=== PATIENT | female | born 1955 | race Caucasian/White ===

== ENCOUNTER 2023-05-29 13:00 | Outpatient (RCR) | payer OTHER, SELFPAY | END 2023-05-29 23:59 | disposition home or self-care (01) | LOC: RPT 13:00 | PROVIDERS: ATTENDING PHYSICIAN Internal Medicine Gastroenterology; PRIMARYCARE PHYSICIAN Family Medicine | DX: R15.1 Fecal smearing (principal); R15.9 Full incontinence of feces; M62.89 Other specified disorders of muscle; Z73.6 Limitation of activities due to disability; R27.8 Other lack of coordination; M62.81 Muscle weakness (generalized) | CPT/HCPCS: 97014; 97112; 97530 ==

== ENCOUNTER 2023-07-17 14:10 | Outpatient (RCR) | payer OTHER, SELFPAY | END 2023-07-17 23:59 | disposition home or self-care (01) | LOC: RPT 14:10 | PROVIDERS: ATTENDING PHYSICIAN Physical Medicine & Rehabilitation; FAMILY PHYSICIAN Family Medicine | DX: M47.812 Spondylosis without myelopathy or radiculopathy, cervical region (principal); R51.9 Headache, unspecified; G89.29 Other chronic pain; M54.2 Cervicalgia; Z73.6 Limitation of activities due to disability | CPT/HCPCS: 97110; 97140; 97162 ==

== ENCOUNTER 2023-07-31 14:02 | Outpatient (RCR) | payer OTHER, SELFPAY | END 2023-07-31 23:59 | disposition home or self-care (01) | LOC: RPT 14:02 | PROVIDERS: ATTENDING PHYSICIAN Physical Medicine & Rehabilitation; FAMILY PHYSICIAN Family Medicine | DX: M47.812 Spondylosis without myelopathy or radiculopathy, cervical region (principal); R51.9 Headache, unspecified; M54.2 Cervicalgia; G89.29 Other chronic pain; Z73.6 Limitation of activities due to disability | CPT/HCPCS: 97110 ==

== ENCOUNTER → 2023-08-17 10:32 | Outpatient (REF) | payer OTHER, SELFPAY | LOC: EMG 10:32 | PROVIDERS: ATTENDING PHYSICIAN Psychiatry & Neurology Neuromuscular Medicine; FAMILY PHYSICIAN Family Medicine | DX: R20.0 Anesthesia of skin (principal) | CPT/HCPCS: 95886; 95910 ==

== ENCOUNTER → 2023-10-03 13:47 | Outpatient (REF) | payer OTHER, SELFPAY | LOC: WDC 13:47 | PROVIDERS: ATTENDING PHYSICIAN Family Medicine | DX: Z12.31 Encounter for screening mammogram for malignant neoplasm of breast (principal) | CPT/HCPCS: 77063; 77067 ==

== ENCOUNTER 2023-12-29 15:02 | Observation (INO) | payer OTHER, SELFPAY ==
[2023-12-29] VITALS (9 sets, daily range): BP systolic 118–139; BP diastolic 74–85; BMI 27.5
[2023-12-29 12:09] LABS: Glucose - Point of Care 141 mg/dl (70-99)
--- NOTE | 2023-12-29 12:29 | ED.CVA ---
History of Present Illness
General
Chief Complaint: CVA/TIA Symptoms
Time Seen by Provider: 12/29/23 12:15
Onset of Stroke Symptoms
Onset of symptoms known: Yes
Date of onset of symptoms: 12/29/23
Time of onset of symptoms: 08:00
History of Present Illness
History of Present Illness:
68-year-old female arrives to the emergency department as a triage stroke alert due to symptoms of aphasia, slurred speech, and difficulty walking. Patient states to me that she has had intermittent dizziness and vision changes for the past 2 weeks
or more, initially describes the vision changes as diplopia however after further discussion it appears to be more of a peripheral visual haziness. She does note chronic neck pain and some extremity paresthesias as well. She felt as though she
could not get her silverware to her mouth during breakfast this morning. The initial onset of the more severe symptoms was at 8 AM today but seems to be improved as of this time. She does relay some mild persistent shortness of breath.
Past History
Past History
ED Past Medical History: Other (Chronic migraine headaches, iron deficiency anemia, colitis, constipation, osteopenia)
ED Past Surgical History: Brain, Cholecystectomy and
Social History
Tobacco: Non-smoker
Personal:
Living: with family
Employment: Employed
Family History
Family History: Other (Noncontributory)
Review of Systems
Review of Systems
Allergies reviewed?: Yes
All Other Systems: ROS reviewed and negative except as documented in HPI and ROS
Phy Exam
Physical Exam
Physical Exam:
GEN: Well appearing, NAD, WDWN
HEENT: Oral mucosa moist, no scleral icterus, no nasal congestion
Cardiac: Regular rate and rhythm, no murmurs
Lung: No respiratory distress, no tachypnea
MSK: No gross deformity or injuries
Skin: Good color, no pallor or jaundice, no rashes
Neuro: AO x3; CN II-XII grossly intact. BUE strength 5/5 in all mckeon, subjective sensory deficit in the left upper extremity however intact to pinprick. BLE strength 5/5 in all mckeon, sensation intact and symmetric. Normal [id number] and
[id number]
Psych: Calm, cooperative
Course
Orders/Labs/Results
Orders:
Orders
12/29/23 12:15
CT Head W/o Cont STROKE ALERT Urgent
Comment:
Reason For Exam: ataxia, speech difficulty
12/29/23 12:24
Basic Metabolic Panel Urgent
Complete Blood Count/With Diff Urgent
TSH Urgent
Comment: TSH ADDED ON BY FLOOR 4:45PM 12-29-23
12/29/23 12:30
Electrocardiogram (*1) Urgent
Reason for Study: TIA/Stroke
EKG- Treatment ONCE
12/29/23 14:41
Admit/Transfer Patient As Directed
Co-Sign Provider:
Level of Care: Observation services
Assign to:: Telemetry
Physician / Group: [facility]
Diagnosis: TIA
Reason for Telemetry: CVA/TIA
Date to Stop Telemetry: 01/01/24
Time to Stop Telemetry: 11:00
12/29/23 14:42
Code Status As Directed
Resuscitation Status: Full Code
12/29/23 14:50
Aspirin 325 mg PO NOW STA
12/29/23 Dinner
Cholesterol Lowering
At Your Request: Full Participation
12/29/23 16:44
Phosphate Enema [Fleet Phosphate Enema-Adult] 135 ml RECTAL DAILYPRN PRN
12/29/23 16:44
Add On- LAB Routine
Tests Added?: TSH
NEUROLOGY CONSULT Routine
Consulting Provider: Suresh Saucedo
Was physician already notified: Yes
MR Brain Without Contrast Routine
Comment:
Reason For Exam: dysarthria
Recent pill cam endoscopy?: No
Activity As Directed
Activity Level: Ambulate
Ot Eval And Treat Routine
Pt Eval And Treat Routine
Activity Level: Ambulate
DX Deep Vein Thrombosis Video Routine
12/29/23 18:00
Enoxaparin Sodium [Lovenox] 40 mg SC QPM
12/29/23 20:00
mesalamine See Dose Instructions PO BID
12/29/23 22:00
Amitriptyline [Elavil] 75 mg PO HS
Latanoprost [Xalatan Ophthalmic Solution] See Dose Instructions BOTH EYES HS
12/30/23 06:00
Basic Metabolic Panel IN AM
12/30/23 08:00
Aspirin Low Dose EC [Aspir Low (Enteric Coated)] 81 mg PO DAILY
Calcium Carbonate [Oscal Jeff 500] 500 mg PO DAILY
Cholecalciferol (Vitamin D3) [VITAMIN D3 (cholecalciferol)] 25 mcg PO DAILY
Cyanocobalamin [Vitamin B-12] 1,000 mcg PO DAILY
Venlafaxine Extended Release [Effexor Xr] 150 mg PO DAILY
01/01/24 11:00
DC Protocol for Telemetry ONCE
Abnormal Lab Results
12/29/23 12/29/23
12:07 12:24
RBC 4.18 L 10^6/uL
(4.20-5.40)
MCH 31.1 H pg
(27.0-31.0)
Absolute Lymphs (auto) 1.1 L 10^3/uL
(1.2-3.4)
Lymphocytes % 19.0 L %
(20.5-51.1)
Monocytes % 9.7 H %
(1.7-9.3)
Sodium 134 L mmol/L
(135-145)
BUN 18 H mg/dl
(7-17)
POC Glucose 141 H mg/dl
(70-99)
12/29/23 12:24
12/29/23 12:24
Vital Signs
Initial and Last Documented VS:
Initial Vital Signs
Temp Pulse Resp BP Pulse Ox
97.9 F 105 18 132/82 98
12/29/23 12:06 12/29/23 12:06 12/29/23 12:06 12/29/23 12:06 12/29/23 12:06
Last Documented Vital Signs
Temp Pulse Resp BP Pulse Ox
98.3 F 100 20 126/85 96
12/29/23 16:47 12/29/23 16:47 12/29/23 16:47 12/29/23 16:47 12/29/23 16:47
MDM/Problems Addressed
MDM/Problems Addressed:
Patient's examination is not consistent with significant/disabling CVA. Additionally symptom onset is quite vague and there seems to be a waxing and waning nature over the past several weeks and as a result she is not a thrombolytic candidate.
Case was reviewed with neurology who assessed the patient at the bedside. Will admit for TIA workup/brain MRI
*Critical Care Note
Total Time (30-74mins, 75-104mins- exclusive of procedures): Not Applicable
ED Attending Note
-
Portions of this chart may have been created with voice recognition software.� Occasional wrong word or��sound alike� substitutions may have occurred due to the inherent limitations of voice recognition software.
Discharge Plan
Departure
Patient Disposition: Admit
Date of Disposition: 12/29/23
Time of Disposition: 13:24
Admit to: Med/Surg
Presentation/result/management discussed w/ accepting MD/DO: Hospitalist
Discharge Problem:
TIA (transient ischemic attack)
Interventions
Interventions:
*Risk Screen - Suicide Last Done: 12/29/23 12:06
*General Assessment Last Done: 12/29/23 12:06
*Neglect/Abuse Screening Last Done: 12/29/23 12:06
ED- Fall Risk Assessment Last Done: 12/29/23 16:36
*ED COVID-19 Vaccine History Last Done: 12/29/23 16:36
*Nursing Disposition Last Done: 12/29/23 16:36
ED- Pulmonary Assessment Last Done: 12/29/23 12:38
ED- Neurological Assessment Last Done: 12/29/23 12:38
ED- Cardiac Assessment Last Done: 12/29/23 12:38
ED Swallowing Screen Last Done: 12/29/23 12:38
[2023-12-29 12:44] LABS: % Basophils 0.2 % (0-2); % Eosinophils 0.9 % (0-6); % Immature Granulocytes 0.3 % (0-0.5); % Monocytes 9.7 % (1.7-9.3); % Neutrophils 69.9 % (42.2-75.2); Absolute Eosinophils 0.1 10^3/uL (0-0.7); Absolute Lymphocytes 1.1 10^3/uL (1.2-3.4); Absolute Monocytes 0.6 10^3/uL (0.1-0.6); Absolute Neutrophils 4.1 10^3/uL (1.4-6.5); Hematocrit 37.3 % (37.0-47.0); Mean Corp Hgb Conc. 34.9 g/dL (33.0-37.0); Mean Corpuscular Hgb 31.1 pg (27.0-31.0); Mean Corpuscular Volume 89.2 fL (81.0-99.0); Mean Platelet Volume 9.1 fL (7.4-10.4); Nucleated Red Blood Cells % 0 %; Platelet Count 240 10^3/uL (130-400); Red Blood Cell Count 4.18 10^6/uL (4.20-5.40); Red Cell Dist. Width 12.8 % (11.5-14.5); White Blood Cell Count 5.8 10^3/uL (4.8-10.8)
[2023-12-29 13:00] LABS: Blood Urea Nitrogen 18 mg/dl (7-17); Calcium 9.4 mg/dl (8.4-10.2); Carbon Dioxide 27 mmol/L (22-30); Chloride 101 mmol/L (98-107); Estimated Creatinine Clearance 87 ml/min; Glucose 96 mg/dl (70-99); Potassium 4.1 mmol/L (3.5-5.1); Sodium 134 mmol/L (135-145); eGFR > 60.00
--- NOTE | 2023-12-29 14:45 | HPS.HSE ---
Family Physician
-
Family Physician: Shreya Barba MD
Chief Complaint
-
Dysarthria, lightheadedness, gait imbalance
History of Present Illness
68-year-old female with myriad complaints including dysarthria, lightheadedness, gait difficulty, diplopia. Symptoms have been intermittent over the past 2 weeks.
She is a difficult historian. Denies any falls recently.
Gets almost daily migraine headaches.
Medical History
Past Medical History
Past Medical History: Reports Other
Additional Past Medical History:
Ulcerative colitis
Migraine headaches
Hypothyroidism
Osteopenia
Pelvic floor dysfunction
Glaucoma
GERD
Past Surgical History: Reports Cholecystectomy and Gynocological
Additional Past Surgical History:
Brain
Social History
Tobacco: Non-smoker
Alcohol: None
Drug: None
Personal:
Living: With Family
Family History
Family History: Not pertinent
Allergies / Home Medications
Allergies reflects when Allergies were last updated in [facility].
Home Medications with original date entered in [facility]
Allergy/Medication List:
Allergies
Allergy/AdvReac Type Severity Reaction Status Date / Time
secukinumab [From Cosentyx] Allergy Unknown Verified 05/18/23 03:55
Home Medications
omeprazole 20 mg capsule,delayed release 20 mg PO DAILY Gastrointestinal issue 11/16/21
amitriptyline 50 mg tablet 75 mg PO HS Mental Health 05/18/23
thyroid (pork) 90 mg tablet ([place] Thyroid) 90 mg PO DAILY Thyroid 05/18/23
upadacitinib 15 mg tablet,extended release 24 hr (Rinvoq) 15 mg PO DAILY Autoimmune Disorder 05/18/23
venlafaxine 150 mg capsule,extended release 24 hr 150 mg PO DAILY Mental Health 05/18/23
atogepant 60 mg tablet (Qulipta) 60 mg PO DAILY 12/29/23
bimatoprost 0.01 % eye drops (Lumigan) 1 drp BOTH EYES QPM 12/29/23
calcium carbonate 500 mg PO DAILY 12/29/23
cholecalciferol (vitamin D3) 25 mcg (1,000 unit) tablet (Vitamin D3) 25 mcg PO DAILY 12/29/23
cyanocobalamin (vitamin B-12) 1,000 mcg tablet 1,000 mcg PO DAILY 12/29/23
ferrous sulfate 325 mg (65 mg iron) tablet 325 mg PO TUTH@1800 12/29/23
flaxseed oil 1,000 mg capsule 1,000 mg PO DAILY 12/29/23
magnesium oxide 400 mg PO DAILY 12/29/23
mesalamine 1.2 gram tablet,delayed release 2.4 g PO BID 12/29/23
sodium phosphates 19 gram-7 gram/118 mL enema (Fleet Enema) 118 ml [place] DAILYPRN PRN constipation 12/29/23
sumatriptan succinate 6 mg/0.5 mL subcutaneous pen injector 6 mg SC DAILYPRN PRN migraines 12/29/23
Review of Systems
-
History Source: Patient
A 12 point ROS was completed and negative except as noted: Yes
Physical Exam
Vital Signs
Vital Signs
Temp Pulse Resp BP Pulse Ox
97.9 F 106 19 135/79 97
12/29/23 12:06 12/29/23 14:30 12/29/23 14:30 12/29/23 14:00 12/29/23 14:00
Physical Exam
General: Well Developed, Well Nourished, No Apparent Distress and Comfortable
HEENT: NormoCephalic, Anicteric and Moist mucous membranes
Respiratory: Clear
Cardiac: S1/S2 and Regular Rhythm
Breast: Deferred by me
GI: Soft, Non Tender and Non Distended
Musculoskeletal: No Clubbing, No Cyanosis and No Edema
Skin: Warm and Dry
Neuro: AO x 3 and Other (4+ out of 5 right hip flexor strength)
Hematologic/Lymphatic: No Lymphadenopathy
Psych: Calm
Laboratory Results
-
12/29/23 12:24
12/29/23 12:24
Impression/Plan
-
Dysarthria/lightheadedness/gait imbalance -intermittent symptoms for 2 weeks. Admit to telemetry. CT head negative for acute disease but does show mild atrophy. Check brain MRI. Consult neurology. Consult PT/OT.
Start aspirin.
Hyponatremia -sodium 134. Monitor for now.
Ulcerative colitis -controlled on meds.
Migraine headaches
Pelvic floor dysfunction
Hypothyroidism -unclear why she is on [place] thyroid instead of levothyroxine. Patient does not know either. Check TSH.
GERD
Glaucoma
Full code
[2023-12-29] MEDS: LOVENOX 40 MG SC (17:20)
[2023-12-29 18:07] LABS: TSH 0.85 uIU/ml (0.47-4.68)
[2023-12-29] MEDS: ASPIRIN 325 MG PO (19:03)
[2023-12-29] MEDS: ELAVIL 75 MG PO (22:03)
[2023-12-29] MEDS: XALATAN OPHTHALMIC SOLUTION 1 DROP BOTH EYES (22:04)
[2023-12-30 03:37] VITALS: BP 122/71
[2023-12-30 07:00] VITALS: BP 141/76
[2023-12-30 07:01] LABS: Blood Urea Nitrogen 18 mg/dl (7-17); Calcium 9.1 mg/dl (8.4-10.2); Carbon Dioxide 30 mmol/L (22-30); Chloride 104 mmol/L (98-107); Estimated Creatinine Clearance 87 ml/min; Glucose 90 mg/dl (70-99); Potassium 4.5 mmol/L (3.5-5.1); Sodium 138 mmol/L (135-145); eGFR > 60.00
[2023-12-30] MEDS: VITAMIN D3 (cholecalciferol) 25 MCG PO (08:55)
[2023-12-30] MEDS: OSCAL CAL 500 500 MG PO (08:55)
[2023-12-30] MEDS: VITAMIN B-12 1000 MCG PO (08:56)
[2023-12-30] MEDS: ASPIR LOW (ENTERIC COATED) 81 MG PO (08:56)
[2023-12-30] MEDS: EFFEXOR XR 150 MG PO (08:56)
--- NOTE | 2023-12-30 09:36 | PTCARENOTE ---
Assumed care of patient at AM change of shift. Pt is AAOx3, ambulatory, and has no complaints at this time. NIHSS scare 1 for drift in the RLE. Plan of care ongoing.
--- NOTE | 2023-12-30 10:53 | W.PN.HOSP.TC ---
Addendum entered and electronically signed by Jimmie Terry DO 12/30/23 17:30:
Orthostatic vitals negative.
Brain MRI negative for acute stroke.
Discharge diagnosis is suspected complicated migraine, discussed with neurology.
Medically stable for discharge today. Outpatient follow-up.
Original Note:
Today's Communication/Plan
-
Await brain MRI
Neurology consult
PT
Orthostatics
Assessment / Plan
Assessment / Plan
Gen-AAOx3, NAD
HEENT-NC, AT, anicteric, clear oral mm
Neck-supple
CV-reg, no M, +S1/S2
Lungs-clear B/L
Abd-soft, NT, ND
Ext-no edema
Musculoskeletal-no cyanosis, clubbing
Skin-warm and dry
Neuro-grossly non-focal
Psych-calm, cooperative
Dysarthria/lightheadedness/gait imbalance -intermittent symptoms for [address] head negative for acute disease but does show mild atrophy. Check brain MRI. Consult neurology. Consult PT/OT.
Started aspirin. Check orthostatic vitals, discussed with nursing.
Hyponatremia -sodium improved.
Ulcerative colitis -controlled on meds.
Migraine headaches
Pelvic floor dysfunction
Hypothyroidism -unclear why she is on [place] thyroid instead of levothyroxine. Patient does not know either. TSH normal.
GERD
Glaucoma
Full code
Anticipated Discharge: Today
Subjective/Interval History
-
Date of Service: December 30, 2023
Patient seen and examined. Complaining of mild lightheadedness.
Objective Data
-
Labs:
Laboratory Results
12/30/23
06:14
Sodium 138
Potassium 4.5
Chloride 104
Carbon Dioxide 30
BUN 18 H
Creatinine 0.6
Glucose 90
Calcium 9.1
Vital Signs:
Vital Signs
Temp Pulse Resp BP Pulse Ox
97.7 F 93 18 141/76 98
12/30/23 07:00 12/30/23 07:00 12/30/23 07:00 12/30/23 07:00 12/30/23 08:00
I&O
12/29/23 12/30/23 12/31/23
06:59 06:59 06:59
Intake Total 240 / 240
Balance 240 / 240
Review of Systems
-
History Source: Patient
All other systems: Reviewed and negative
[2023-12-30 11:00] VITALS: BP 103/69; BP 112/75; BP 112/77; PULSE 106; PULSE 113; PULSE 98
[2023-12-30 12:54] VITALS: BP 105/74; PULSE 77; O2SAT 93
[2023-12-30 12:59] VITALS: BP 105/74; PULSE 91; O2SAT 99
--- NOTE | 2023-12-30 13:40 | W.DS.TRANS ---
DC Summary - [employer]
-
Discharge Instructions:
Discharge Diagnosis/Procedures Complicated migraine, hyponatremia
Diet Low Fat,Low Cholesterol
Activity As tolerated
Driving Restrictions As prior to admission
Bathing Restrictions None
Instructions:
Stand-Alone Forms:
Changes to Home Medications: No
Discharge Medications:
DC Medications w/original date entered in [facility]
omeprazole 20 mg capsule,delayed release 20 mg PO DAILY Gastrointestinal issue 11/16/21
amitriptyline 50 mg tablet 75 mg PO HS Mental Health 05/18/23
thyroid (pork) 90 mg tablet ([place] Thyroid) 90 mg PO DAILY Thyroid 05/18/23
upadacitinib 15 mg tablet,extended release 24 hr (Rinvoq) 15 mg PO DAILY Autoimmune Disorder 05/18/23
venlafaxine 150 mg capsule,extended release 24 hr 150 mg PO DAILY Mental Health 05/18/23
atogepant 60 mg tablet (Qulipta) 60 mg PO DAILY migraine 12/29/23
bimatoprost 0.01 % eye drops (Lumigan) 1 drp BOTH EYES QPM Eye Condition 12/29/23
calcium carbonate 500 mg PO DAILY Supplement 12/29/23
cholecalciferol (vitamin D3) 25 mcg (1,000 unit) tablet (Vitamin D3) 25 mcg PO DAILY Supplement 12/29/23
cyanocobalamin (vitamin B-12) 1,000 mcg tablet 1,000 mcg PO DAILY Supplement 12/29/23
ferrous sulfate 325 mg (65 mg iron) tablet 325 mg PO TUTH@1800 Supplement 12/29/23
flaxseed oil 1,000 mg capsule 1,000 mg PO DAILY Supplement 12/29/23
magnesium oxide 400 mg PO DAILY Supplement 12/29/23
mesalamine 1.2 gram tablet,delayed release 2.4 g PO BID Gastrointestinal Issue 12/29/23
sodium phosphates 19 gram-7 gram/118 mL enema (Fleet Enema) 118 ml [place] DAILYPRN PRN constipation 12/29/23
sumatriptan succinate 6 mg/0.5 mL subcutaneous pen injector 6 mg [place] DAILYPRN PRN migraines 12/29/23
Home Medication Changes
Pending Results: No
--- NOTE | 2023-12-30 14:16 | CM ---
Patient seen bedside.
IA completed.
patient lives with spouse in a 2 story home.
Patient independent prior to admission without assistive devices.
Patient drives.
No hx VN or SNF.
Patient denies home care needs.
[facility] form completed.
PCP: Dr Barba
Pharmacy: [facility] [address]
Plan: home no needs.
[2023-12-30 15:00] VITALS: BP 135/84
[2024-01-01 19:48] LABS: Hepatitis C Antibody Negative (Negative)
== END 2023-12-30 15:30 | disposition home or self-care (01) ==
LOC: 4 WEST ACU 15:02
PROVIDERS: ADMITTING PHYSICIAN Hospitalist; EMERGENCY PHYSICIAN Emergency Medicine; FAMILY PHYSICIAN Family Medicine
DX: G43.109 Migraine with aura, not intractable, without status migrainosus (principal); R47.01 Aphasia; R27.0 Ataxia, unspecified; R47.81 Slurred speech; E87.1 Hypo-osmolality and hyponatremia; G89.29 Other chronic pain; M54.2 Cervicalgia; R20.2 Paresthesia of skin; R06.02 Shortness of breath; D50.9 Iron deficiency anemia, unspecified; R47.9 Unspecified speech disturbances; G31.9 Degenerative disease of nervous system, unspecified; M85.80 Other specified disorders of bone density and structure, unspecified site; R47.1 Dysarthria and anarthria; E03.9 Hypothyroidism, unspecified; H40.9 Unspecified glaucoma; K21.9 Gastro-esophageal reflux disease without esophagitis; K59.02 Outlet dysfunction constipation; K51.90 Ulcerative colitis, unspecified, without complications; Z90.49 Acquired absence of other specified parts of digestive tract; Z88.8 Allergy status to other drugs, medicaments and biological substances; Z79.890 Hormone replacement therapy
CPT/HCPCS: 70450; 70551; 80048; 82962; 84443; 85025; 86803; 93005; 97162; 97166; 99285; G0378

== ENCOUNTER 2024-01-12 14:54 | Outpatient (RCR) | payer OTHER, SELFPAY | END 2024-01-12 23:59 | disposition home or self-care (01) | LOC: RPT 14:54 | PROVIDERS: ATTENDING PHYSICIAN Internal Medicine Rheumatology; FAMILY PHYSICIAN Family Medicine | DX: R26.89 Other abnormalities of gait and mobility (principal) | CPT/HCPCS: 97110; 97112; 97162 ==

== ENCOUNTER 2024-01-18 15:58 | Outpatient (RCR) | payer OTHER, SELFPAY | END 2024-01-18 23:59 | disposition home or self-care (01) | LOC: RPT 15:58 | PROVIDERS: ATTENDING PHYSICIAN Internal Medicine Rheumatology; FAMILY PHYSICIAN Family Medicine | DX: R26.89 Other abnormalities of gait and mobility (principal); M62.81 Muscle weakness (generalized); Z73.6 Limitation of activities due to disability | CPT/HCPCS: 97110; 97112 ==

== ENCOUNTER → 2024-02-23 08:01 | Outpatient (REF) | payer OTHER, SELFPAY | LOC: RAD 08:01 | PROVIDERS: ATTENDING PHYSICIAN Family Medicine | DX: Z78.0 Asymptomatic menopausal state (principal) | CPT/HCPCS: 36415; 77080 ==

== ENCOUNTER 2024-03-18 14:29 | Outpatient (RCR) | payer OTHER, SELFPAY ==
[2024-03-18 14:40] VITALS: BP 110/98
[2024-03-18] MEDS: RECLAST 100 IV (14:53)
[2024-03-18 15:15] VITALS: BP 106/74
== END 2024-03-18 23:59 | disposition home or self-care (01) ==
LOC: OID 14:29
PROVIDERS: ATTENDING PHYSICIAN Family Medicine
DX: M81.0 Age-related osteoporosis without current pathological fracture (principal)
CPT/HCPCS: 96365; J3489

== ENCOUNTER → 2024-08-03 08:09 | Outpatient (REF) | payer OTHER, SELFPAY | LOC: RAD 08:09 | PROVIDERS: ATTENDING PHYSICIAN Internal Medicine Critical Care Medicine; FAMILY PHYSICIAN Family Medicine; REFERRING PHYSICIAN Internal Medicine Rheumatology | DX: R91.8 Other nonspecific abnormal finding of lung field (principal); J47.9 Bronchiectasis, uncomplicated; L40.50 Arthropathic psoriasis, unspecified; M16.10 Unilateral primary osteoarthritis, unspecified hip; M25.551 Pain in right hip; M41.9 Scoliosis, unspecified; M46.1 Sacroiliitis, not elsewhere classified; M54.50 Low back pain, unspecified; R26.89 Other abnormalities of gait and mobility | CPT/HCPCS: 71250; 72110 ==

== ENCOUNTER → 2024-12-10 15:28 | Outpatient (REF) | payer OTHER, SELFPAY | LOC: WDC 15:28 | PROVIDERS: ATTENDING PHYSICIAN Family Medicine | DX: Z12.31 Encounter for screening mammogram for malignant neoplasm of breast (principal) | CPT/HCPCS: 77063; 77067 ==

== ENCOUNTER 2025-02-11 06:22 | Day surgery (SDC) | payer OTHER, SELFPAY | END 2025-02-11 15:37 | disposition home or self-care (01) | LOC: GI 06:22 | PROVIDERS: ATTENDING PHYSICIAN Internal Medicine Gastroenterology | DX: Z12.11 Encounter for screening for malignant neoplasm of colon (principal); K51.00 Ulcerative (chronic) pancolitis without complications; K51.40 Inflammatory polyps of colon without complications; Q43.8 Other specified congenital malformations of intestine; K63.89 Other specified diseases of intestine | CPT/HCPCS: 45380; 88305 ==